=== PATIENT | female | born 1960 | race Caucasian/White ===

== ENCOUNTER 2016-08-28 12:33 | Emergency (ER) | payer OTHER ==
[~2016-08-28] VITALS: Ht 162.6 cm; Wt 55.0 kg
[2016-08-28 12:35] VITALS: BP 140/72; PULSE 68; RESP 16; TEMP 97.9; O2SAT 99
--- NOTE | 2016-08-28 14:01 | PD ---
HPI Chief Complaint: Injury Time Seen by Provider: 13:55 Travel History International Travel<30 days: No Contact w/Intl Traveler<30days: No Traveled to known affect area: No History of Present Illness HPI 55-year-old female presents to the emergency room for evaluation of left knee pain for the past one month. Patient denies any trauma. States she thinks she twisted while at a workout class that involves a lot of dancing. States it has improved since initial onset, becoming less swollen and less painful however given its persistence she decided to come to the emergency room to have it checked out. Patient has not gone to her primary care physician. She has not taken anything for it because the pain has not been not severe. Pain is worsened with certain range of motion and improved at rest. She has been wearing a knee brace which moderately relieve her symptoms. Localized to the left lateral and medial knee. No radiation. History Past Medical Histgory Menopausal: Yes Hx Cancer: No Social History Alcohol Use: No Tobacco Use: No Allergies-Medications (Allergen,Severity, Reaction): Coded Allergies: Aspirin (Verified Allergy, Severe, 08/28/16) Penicillin (Verified Allergy, Severe, SOB, HIVES, 08/28/16) Gluten (Verified Adverse Reaction, Intermediate, BLOATING, 08/28/16) Uncoded Allergies: BLOOD THINNERS (Allergy, Severe, 11/17/13) Reported Meds & Prescriptions Reported Meds & Active Scripts Active No Active Prescriptions or Reported Medications Review of Systems Except as stated in HPI: all other systems reviewed are Neg Physical Exam Narrative GENERAL: Well-nourished, well-developed female in no acute distress. Afebrile. Ambulatory. SKIN: Warm and dry. No erythema or ecchymosis. HEAD: Normocephalic. EYES: No scleral icterus. No injection or drainage. NECK: Supple, trachea midline. No JVD or lymphadenopathy. EXTREMITY: Left knee is mildly tender to palpation over the medial and lateral aspects. Full range of motion in all joints. Mild joint effusion present. 2+ dorsalis pedis pulse. Negative anterior and posterior drawer test. Pain with valgus and varus stress test. Data Data Last Documented VS Vital Signs Date Time Temp Pulse Resp B/P Pulse Ox O2 Delivery O2 Flow Rate FiO2 08/28/16 12:35 97.9 68 16 140/72 99 Room Air MDM Medical Screen Exam Complete: Yes Emergency Medical Condition: No Differential Diagnosis Internal derangement of the knee Narrative Course 55-year-old female presents to the emergency room for evaluation of left knee pain for the past month. Patient denies trauma. States she may have injured it during dance class. Physical exam reveals mild joint effusion of the left knee. Full range of motion. No erythema or ecchymosis. No bony tenderness to palpation. Patient is ambulatory. Left lower extremity is neurovascularly intact with 2+ dorsalis pedis pulse. Patient was given orthopedic instructions and told to follow up with a primary care physician for outpatient MRI or referral to orthopedist. Patient told to return for worsening symptoms. There are no urgent or emergent medical conditions at this time. A medical screening exam was performed: At the time of evaluation the presenting medical condition was determined not to be of an emergent nature. The patient was given the option of receiving additional care, but declined. Patient was given options for additional community resources from which to obtain care. The Patient Has Been advised to seek medical attention for their presenting complaint. The patient has been advised to return to the ER at any time if an emergent condition develops. Primary Impression: Encounter for medical screening examination Scripts No Active Prescriptions or Reported Meds Disposition: 01 DISCHARGE HOME Condition: Stable Lidia Ac Aug 28, 2016 14:01
== END 2016-08-28 13:50 | disposition left against medical advice (07) ==
LOC: NEPB 12:33
DX: M25.562 Pain in left knee (principal)
CPT/HCPCS: 99281; 99283